=== PATIENT | female | born 1965 | race African-American/Black ===

== ENCOUNTER → 2020-12-20 10:32 | Outpatient (CLI) | payer OTHER, SELFPAY ==
--- NOTE | ~2020-12-20 | MR_ITS ---
EXAMINATION: MR knee LT wo con DATE: 12/20/2020 11:31 INDICATION: Acute onset left knee pain TECHNIQUE: Magnetic resonance imaging (MRI) of the left knee was performed without intravenous contra st. Sequences included coronal PD-weighted FSE, coronal PD-weighted FS FSE, sagittal T2-weighted FSE , sagittal PD-weighted FS FSE and axial PD weighted fat saturated FSE. COMPARISON: None. FINDINGS: Medial compartment: There is increased signal at the posterior root of the medial meniscus suspicious for meniscal tear w ith focal marrow edema at the posterolateral aspect of the medial tibial plateau centered at the foot plate of the posterior root. The remainder of the medial meniscus is normal. Partial-thickness chondr al fissure involving greater than 50% the cartilage thickness but without degenerative subchondral ch anges at the anterior weightbearing medial femoral condyle. Lateral compartment: Lateral meniscus is normal. Articular cartilage is normal. Patellofemoral compartment: Partial-thickness chondral fissuring at the medial and lateral patellar facets and at the inferior as pect of the medial trochlea without degenerative subchondral changes. Ligaments and tendons: Anterior and posterior cruciate ligaments are normal. The medial collateral ligament and fibular alida ateral ligament complex are normal. The extensor mechanism is normal. The visualized medial and later al hamstring tendons as well as the iliotibial band are normal. Fluid: Physiologic amount of fluid in the joint space. No loose osteochondral bodies identified. Prepatellar edema without discrete bursal fluid collection. Osseous/other: Normal marrow signal aside from the previous noted edema at the posterolateral medial tibial plateau. No fracture or pathologic marrow replacing process. IMPRESSION: 1. Likely tear at the posterior root of the medial meniscus. Specificity is decreased in that the christofer entation of the meniscus at this location is susceptible to magic angle artifact in the obliquely rel ative to the 3 standard imaging planes as well as volume averaged. The prominence of the marrow edema underlying the footplate however does limit further credence to a suspected meniscal tear. 2. Mild medial and patellofemoral osteoarthritis. Reviewed, dictated and finalized at location A. IMPRESSION: 1. Likely tear at the posterior root of the medial meniscus. Specificity is dec reased in that the orientation of the meniscus at this location is susceptible to magic angle artifact in the obliquely relative to the 3 standard imaging marcos kyle as well as volume averaged. The prominence of the marrow edema underlying t he footplate however does limit further credence to a suspected meniscal tear. 2. Mild medial and patellofemoral osteoarthritis.
== END ==
PROVIDERS: Visit Provider Orthopaedic Surgery
DX: M25.562 Pain in left knee (principal); M17.12 Unilateral primary osteoarthritis, left knee; R93.6 Abnormal findings on diagnostic imaging of limbs
CPT/HCPCS: 73721